=== PATIENT | female | born 1985 | race Caucasian/White ===

== ENCOUNTER 2020-04-04 19:58 | Emergency (ER) | payer MEDICAID ==
[~2020-04-04] VITALS: Ht 152.4 cm; Wt 49.9 kg
[2020-04-04 20:18] VITALS: Ht 152.4 cm; Wt 49.9 kg
[2020-04-05 01:04] VITALS: BP 104/60
== END 2020-04-05 01:04 | disposition home or self-care (01) ==
LOC: ED 19:58
DX: N83.202 Unspecified ovarian cyst, left side (principal)
CPT/HCPCS: Q0092